=== PATIENT | female | born 1940 | race Caucasian/White ===

== ENCOUNTER 2024-08-14 09:02 | Emergency (ER) | payer MEDICARE, OTHER ==
[~2024-08-14] VITALS: Ht 160 cm; Wt 52.8 kg
[2024-08-14] MEDS: ondansetron 4mg rapidly disintigrating tab PO ONE (10:00)
[2024-08-14] MEDS: LIDOcaine 5% patch TP SCH (10:01)
[2024-08-14] MEDS: HYDROmorphone inj. 0.5 MG/0.5 ML DISP.SYRIN IM ONE (10:01)
[2024-08-14] MEDS: bacitracin 15gm ointment TP ONE (10:01)
[2024-08-14] MEDS ORDERED: HYDR2TAB28 PO (10:19)
[2024-08-14] MEDS ORDERED: LIDO700A47 TOP (10:29)
[2024-08-14 10:50] VITALS: BP 158/89; PULSE 69; RESP 16; TEMP 98.2; O2SAT 94
== END 2024-08-14 10:52 | disposition home or self-care (01) ==
LOC: ER 09:02
DX: S81.811A Laceration without foreign body, right lower leg, initial encounter (principal); R07.81 Pleurodynia; Z88.0 Allergy status to penicillin; Z88.1 Allergy status to other antibiotic agents; Z88.5 Allergy status to narcotic agent; Z88.6 Allergy status to analgesic agent; W01.0XXA Fall on same level from slipping, tripping and stumbling without subsequent striking against object, initial encounter; Y93.89 Activity, other specified; Y92.89 Other specified places as the place of occurrence of the external cause; Y99.8 Other external cause status
CPT/HCPCS: 71101; 96372; 99284; A6258; A6402; J1171; J7030; A6449